=== PATIENT | male | born 1965 | race Caucasian/White ===

== ENCOUNTER 2019-07-23 15:25 | Emergency (ER) | payer OTHER ==
[2019-07-23] MEDS ORDERED: KETOROLAC 30 MG/ML INJ ONE (15:58)
[2019-07-23] MEDS ORDERED: NA CHLORIDE 0.9% 1,000 ML ONE (15:59)
[2019-07-23 16:02] LABS: Basophils % 0.8 % (0-1.3); Hematocrit 41.7 % (39.6-49.0); Lymphocytes % 27.7 % (15.3-44.8); MPV 8.3 fL (7.6-11.3); RBC Red Blood Cell Count 4.81 M/uL (4.33-5.43)
[2019-07-23 16:24] LABS: Albumin 4.2 g/dL (3.4-5.0); Bilirubin Direct 0.2 mg/dL (0-0.2); Bilirubin Total 0.6 mg/dL (0.2-1.0); Potassium 4.2 mmol/L (3.5-5.1); Protein, Total 7.2 g/dL (6.4-8.2)
--- NOTE | 2019-07-23 16:37 | RAD REPORT ---
EXAM DESCRIPTION: CT - Spine Lumbar Wo Con - 07/23/2019 4:30 pm CLINICAL HISTORY: Radiculopathy. LOWER BACK PAIN COMPARISON: No comparisons TECHNIQUE: Axial noncontrast CT imaging of the lumbar spine was performed with coronal and sagittal re-formatted images. All CT scans are performed using dose optimization technique as appropriate and may include automated exposure control or mA/KV adjustment according to patient size. FINDINGS: No acute lumbar spine fracture seen. No aggressive marrow pattern or malalignment. Paraspinal tissues are normal in thickness. No paraspinal abscess or hematoma seen. Mild to moderate spondylosis is seen lower lumbar levels in the form of disc bulges and facet hypertr ophy. Small bilateral renal calculi are seen. IMPRESSION: No acute lumbar spine finding. Mild to moderate lower lumbar spondylosis. Bilateral nephrolithiasis without hydronephrosis.
[2019-07-23 17:48] LABS: Urine Bacteria <20 /HPF (NONE SEEN); Urine Culture Reflex Order NOT NEEDED; Urine RBC <5 /HPF (NONE SEEN)
[2019-07-23 18:11] VITALS: TEMP 98.7; O2SAT 100
[2019-07-23 18:13] VITALS: BP 132/74
--- NOTE | 2019-07-25 18:09 | ER ---
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 I COULD HEAR EVERYONE BUT COULD NOT REALLY SEE AND HAD DARK SPOTS IN MY VISION. EMS REPORTS PT WAS PALE AND DIAPHORETIC UPON ARRIVAL. Coronavirus screen: Proceed with normal triage. Patient denies a cough. Patient denies shortness of breath or difficulty breathing. Patient denies measured and/or subjective temperature greater than 100.4F prior to today's visit. Patient denies travel on a cruise ship or to a country the [facility] currently lists as an affected area. Patient denies contact with known and/or suspected case of COVID-19. Ebola Screen: No symptoms or risks identified at this time. Initial Sepsis Screen: Does the patient meet any 2 criteria? No. Patient's initial sepsis screen is negative. Does the patient have a suspected source of infection? No. Patient's initial sepsis screen is negative. Risk Assessment: Do you want to hurt yourself or someone else? Patient reports no desire to harm self or others. Onset of symptoms was July 23, 2019 at 14:30. Care prior to arrival: Glucose check: 141. 15:31 Method Of Arrival: EMS: [facility] ls4 15:31 Acuity: BROD[place] 3 ls4 Triage Assessment: 15:35 General: Appears in no apparent distress. comfortable, Behavior is calm, cooperative. ls4 Pain: Complains of pain in lumbar area, right low back, right lower back and left hip. Neuro: No deficits noted. Level of Consciousness is awake, alert, obeys commands, Oriented to person, place, time, situation, Ju[employer] are equal bilaterally Moves all extremities. Gait is steady, Speech is normal, Facial symmetry appears normal, Pupils are PERRLA, Intact Denies weakness blurred vision dizziness, difficulty swallowing, paresthesias numbness headache photophobia diplopia. Cardiovascular: Denies chest pain, Capillary refill < 3 seconds Patient's skin is warm and dry. Respiratory: Airway is patent Respiratory effort is even, unlabored, Respiratory pattern is regular, Breath sounds are clear bilaterally. Historical: - Allergies: 15:35 No Known Allergies; ls4 - Home Meds: 15:35 None [Active]; ls4 - PMHx: 15:35 None; ls4 - PSHx: 15:35 None; ls4 - Immunization history:: Adult Immunizations up to date, Flu vaccine status is unknown. - Social history:: Smoking status: Patient denies any tobacco usage or history of. Screenin:38 Abuse screen: Denies threats or abuse. Denies injuries from another. Nutritional ls4 screening: No deficits noted. Tuberculosis screening: No symptoms or risk factors identified. Fall Risk None identified. Assessment: 16:38 Reassessment: Patient appears in no apparent distress at this time. Patient and/or ls4 family updated on plan of care and expected duration. Pain level reassessed. Patient is alert, oriented x 3, equal unlabored respirations, skin warm/dry/pink. Pain:. Vital Signs: 15:31 BP 125 / 103; Pulse 59; Resp 14; Temp 98.7(O); Pulse Ox 100% on R/A; Pain 2/10; ls4 15:57 BP 139 / 76; Pulse 60; Resp 18; Pulse Ox 100% on R/A; Pain 2/10; ls4 17:14 BP 132 / 74; Pulse 66; Resp 18; Pulse Ox 100% on R/A; Pain 0/10; ls4 ED Course: 15:29 Patient arrived in ED. ss 15:29 Cortez Boyd PA is PHCP. cp 15:29 Irineo Babin MD is Attending Physician. cp 15:30 Alicia Niño, YANIRA is Primary Nurse. ls4 15:35 Triage completed. ls4 15:37 Arm band placed on. ls4 15:37 Patient has correct armband on for positive identification. Bed in low position. Call ls4 light in reach. Side rails up X 1. Pulse ox on. NIBP on. Verbal reassurance given. 15:37 No provider procedures requiring assistance completed. Patient maintains SpO2 ls4 saturation greater than 95% on room air. 16:26 CT completed. Patient tolerated procedure well. Patient moved back from CT. bq 16:26 CT Lumbar Spine Wo Con Sent. ls4 16:30 CT Lumbar Spine Wo Con In Process Unspecified. EDMS 17:14 EKG completed in triage. Results shown to MD. ls4 18:00 IV discontinued, intact, bleeding controlled, No redness/swelling at site. Pressure ss dressing applied. Administered Medications: 15:56 Drug: NS 0.9% 1000 ml Route: IV; Rate: 1000 ml/hr; Site: right antecubital; 15:56 Drug: TORadol - Ketorolac 15 mg Route: IVP; Site: right antecubital; 16:20 Follow up: Response: No adverse reaction; Marked relief of symptoms ls4 Outcome: 17:41 Discharge ordered by MD. hedy 18:00 Discharged to home ambulatory. ss 18:00 Condition: good 18:00 Discharge instructions given to patient, Instructed on discharge instructions, follow up and referral plans. medication usage, Demonstrated understanding of instructions, follow-up care, medications. 18:04 Patient left the ED. ss Signatures: Dispatcher [employer] EDMS Ana Moss, RN RN Amara Schaefer Shelby, RN RN Cortez Boyd, UNA PA Alicia Kirk, RN RN ls4
--- NOTE | 2019-07-25 18:10 | EDPHYS ---
Physician Documentation [facility] Name: Wing Avila Age: 53 yrs Sex: Male : 1965 Arrival Date: 07/23/2019 Time: 15:29 Bed 8 Private MD: ED Physician Irineo Babin HPI: 07/22 15:30 This 53 yrs old Male presents to ER via Unassigned with complaints of Low cp Back Pain. 15:30 The patient presents with pain that is acute. The symptoms are located in the low back. cp The pain radiates to the left hip. The problem was sustained EMS reports patient was at work and working on a pipe when he suddenly felt pain to lower back. Patient reports dizziness, being lightheaded and briefly blacking out. Historical: - Allergies: 15:35 No Known Allergies; ls4 - Home Meds: 15:35 None [Active]; ls4 - PMHx: 15:35 None; ls4 - PSHx: 15:35 None; ls4 - Immunization history:: Adult Immunizations up to date, Flu vaccine status is unknown. - Social history:: Smoking status: Patient denies any tobacco usage or history of. ROS: 15:35 Constitutional: Negative for body aches, chills, fever, poor PO intake. cp 15:35 Eyes: Negative for injury, pain, redness, and discharge. cp 15:35 ENT: Negative for ear pain, sore throat, difficulty swallowing, difficulty handling secretions. 15:35 Cardiovascular: Negative for chest pain, edema, palpitations. 15:35 Respiratory: Negative for cough, shortness of breath, wheezing. 15:35 Abdomen/GI: Negative for abdominal pain, nausea, vomiting, and diarrhea, constipation, black/tarry stool, rectal bleeding, bowel incontinence. 15:35 Back: Positive for pain at rest, pain with movement, of the left low back. 15:35 : Negative for urinary symptoms, hematuria, flank pain, difficulty urinating, bladder incontinence, testicular pain 15:35 Skin: Negative for rash. 15:35 Neuro: Positive for dizziness, Negative for altered mental status, headache, numbness, speech changes, weakness. 15:35 All other systems are negative. Exam: 15:45 Constitutional: The patient appears in no acute distress, alert, awake, comfortable, cp non-diaphoretic, non-toxic, well developed, well nourished. 15:45 Head/Face: Normocephalic, atraumatic. cp 15:45 Eyes: Periorbital structures: appear normal, Conjunctiva: normal, no exudate, no injection, Sclera: no appreciated abnormality, Lids and lashes: appear normal, bilaterally. 15:45 ENT: External ear(s): are unremarkable, Nose: is normal, Mouth: is normal, Posterior pharynx: Airway: no evidence of obstruction, patent. 15:45 Neck: ROM/movement: is normal, is supple, without pain, no range of motions limitations, no nuchal rigidity. 15:45 Chest/axilla: Inspection: normal, Palpation: is normal, no crepitus, no tenderness. 15:45 Cardiovascular: Rate: bradycardic, Rhythm: regular. 15:45 Respiratory: the patient does not display signs of respiratory distress, Respirations: normal, no use of accessory muscles, no retractions, labored breathing, is not present, Breath sounds: are clear throughout, no decreased breath sounds, no stridor, no wheezing. 15:45 Abdomen/GI: Inspection: abdomen appears normal, Bowel sounds: active, all quadrants, Palpation: abdomen is soft and non-tender, in all quadrants, rebound tenderness, is not appreciated, voluntary guarding, is not appreciated, involuntary guarding, is not appreciated. 15:45 Back: pain, that is mild, of the left low back, ROM is painful, with flexion, CVA tenderness, is absent, vertebral tenderness, is not appreciated, Straight leg raises: of both lower extremities does not illicit pain. 15:45 Neuro: Orientation: to person, place \T\ time. Mentation: is normal, Motor: moves all fours, strength is normal, Sensation: is normal, Deep tendon reflexes are 2+ (normal) in the right patellar, right Achilles, left patellar and left Achilles. 16:30 ECG was reviewed by the Attending Physician. cp Vital Signs: 15:31 BP 125 / 103; Pulse 59; Resp 14; Temp 98.7(O); Pulse Ox 100% on R/A; Pain 2/10; ls4 15:57 BP 139 / 76; Pulse 60; Resp 18; Pulse Ox 100% on R/A; Pain 2/10; ls4 17:14 BP 132 / 74; Pulse 66; Resp 18; Pulse Ox 100% on R/A; Pain 0/10; ls4 MDM: 15:31 Patient medically screened. 16:00 Differential diagnosis: strain, fracture, sciatica, Herniated disc cardiac arrythmia. 17:40 Data reviewed: vital signs, nurses notes, lab test result(s), EKG, radiologic studies, cp CT scan. 17:40 Test interpretation: by ED physician or midlevel provider: ECG. Counseling: I had a cp detailed discussion with the patient and/or guardian regarding: the historical points, exam findings, and any diagnostic results supporting the discharge/admit diagnosis, lab results, radiology results, the need for outpatient follow up, a family practitioner, to return to the emergency department if symptoms worsen or persist or if there are any questions or concerns that arise at home. Response to treatment: the patient's symptoms have markedly improved after treatment, and as a result, I will discharge patient. ED course: VSS. CT lumbar spine negative for acute findings. Patient reports pain improved with meds. Will discharge to home for continued monitoring. 07/22 15:31 Order name: Basic Metabolic Panel; Complete Time: 17:21 07/22 17:21 Interpretation: Normal except: CO2 33; GLUC 161; BUN 24; GFR 63. 07/22 15:31 Order name: CBC with Diff; Complete Time: 17:21 07/22 17:21 Interpretation: Normal except: WBC 3.7. 07/22 15:31 Order name: Hepatic Function; Complete Time: 17:21 07/22 15:31 Order name: Lipase; Complete Time: 17:21 07/22 15:31 Order name: Urine Microscopic Only; Complete Time: 17:54 07/22 17:54 Interpretation: Reviewed. 07/22 16:00 Order name: CT Lumbar Spine Wo Con; Complete Time: 17:21 07/22 17:22 Interpretation: Report reviewed. 07/22 15:31 Order name: IV Saline Lock; Complete Time: 15:57 07/22 15:31 Order name: Labs collected and sent; Complete Time: 15:57 07/22 15:31 Order name: Urine Dipstick-Ancillary (obtain specimen); Complete Time: 16:35 07/22 15:34 Order name: EKG; Complete Time: 15:34 cp 07/22 15:34 Order name: EKG - Nurse/Tech; Complete Time: 15:57 cp EC:30 Rate is 61 beats/min. Rhythm is regular. [place] interval is normal. QRS interval is normal. cp QT interval is normal. T waves are Inverted in lead V2. Interpreted by me. Reviewed by me. Administered Medications: 15:56 Drug: NS 0.9% 1000 ml Route: IV; Rate: 1000 ml/hr; Site: right antecubital; 15:56 Drug: TORadol - Ketorolac 15 mg Route: IVP; Site: right antecubital; 16:20 Follow up: Response: No adverse reaction; Marked relief of symptoms ls4 Disposition: 18:30 Co-signature as Attending Physician, Irineo Babin MD I agree with the assessment and kdr plan of care. Disposition: 07/23/19 17:41 Discharged to Home. Impression: Low back pain. - Condition is Stable. - Discharge Instructions: Back Pain, Adult, Heat Therapy, Back Exercises. - Prescriptions for Cyclobenzaprine 10 mg Oral Tablet - take 1 tablet by ORAL route every 8 hours As needed; 20 tablet. Medrol (Nathanael) 4 mg Oral Tablets, Dose Pack - take 1 tablet by ORAL route as directed - follow package instructions; 1 packet. - Medication Reconciliation Form, Thank You Letter, Antibiotic Education, Prescription Opioid Use form. - Follow up: Private Physician; When: 2 - 3 days; Reason: Recheck today's complaints. - Problem is new. - Symptoms have improved. Signatures: Dispatcher [employer] EDAna Brothers, RN RN Irineo Babin MD MD [facility] Cherie Ortiz RN RN ss Cortez Boyd PA PA cp Alicia Niño, RN RN ls4 Corrections: (The following items were deleted from the chart) 18:04 17:41 07/23/2019 17:41 Discharged to Home. Impression: Low back pain. Condition is ss Stable. Forms are Medication Reconciliation Form, Thank You Letter, Antibiotic Education, Prescription Opioid Use. Follow up: Private Physician; When: 2 - 3 days; Reason: Recheck today's complaints. Problem is new. Symptoms have improved. cp
== END 2019-07-23 18:04 | disposition home or self-care (01) ==
LOC: ER 15:25
DX: M54.5 Low back pain (principal)
CPT/HCPCS: 36415; 72131; 80048; 80076; 81015; 83690; 85025; 93005; 96374; 99285; J7030